=== PATIENT | male | born 2000 | race Hispanic/Latino ===

== ENCOUNTER 2020-07-04 17:44 | Emergency (ER) | payer SELFPAY ==
[~2020-07-04] VITALS: Ht 170.2 cm; Wt 81.6 kg
[2020-07-04] MEDS ORDERED: LIDOCAINE HCL 1% LOCAL INJ 20 ML VIAL INJ ONE (19:00)
[2020-07-04] MEDS ORDERED: TETANUS/DIPHTHERIA TOX ADULT 0.5 ML SYR IM ONE (19:00)
[2020-07-04 21:08] VITALS: BP 119/57
== END 2020-07-04 21:06 | disposition home or self-care (01) ==
LOC: ER 19:16
DX: S61.021A Laceration with foreign body of right thumb without damage to nail, initial encounter (principal); W45.0XXA Nail entering through skin, initial encounter; Y92.008 Other place in unspecified non-institutional (private) residence as the place of occurrence of the external cause
CPT/HCPCS: 73130; 90471; 90714; 99284; J2001